=== PATIENT | male | born 1960 | race Caucasian/White ===

== ENCOUNTER 2025-05-31 09:15 | Outpatient (CLI) | payer BC | END 2025-05-31 09:16 | disposition home or self-care (01) | LOC: SCSMRI 09:15 | PROVIDERS: ATTEND Family Medicine Sports Medicine | DX: M51.369 Other intervertebral disc degeneration, lumbar region without mention of lumbar back pain or lower extremity pain (principal); M47.816 Spondylosis without myelopathy or radiculopathy, lumbar region | CPT/HCPCS: 72148 ==